=== PATIENT | female | born 1985 | race Caucasian/White ===

== ENCOUNTER 2017-08-26 16:44 | Emergency (ER) | payer OTHER ==
[~2017-08-26] VITALS: Ht 172.7 cm; Wt 90.7 kg
[2017-08-26] MEDS ORDERED: NEURONTIN 300300 M1 PO (16:56)
[2017-08-26 17:32] LABS: HEMATOCRIT 35.4 % (37.0-47.0); HEMOGLOBIN 12.1 gm/dL (12.0-15.0); MCHC 34.3 g/dL (28.0-37.0); MCV 87.5 fL (80.0-100.0); MPV 9.3 fl. (7.2-11.1); RBC 4.05 mil/uL (4.20-5.00); RDW-CV 12.8 % (10.5-14.5); WBC 13.5 thou/uL (4.0-11.0)
[2017-08-26 17:35] LABS: CALCIUM 8.2 mg/dL (8.5-10.1)
[2017-08-26 17:36] LABS: URINE BLOOD NEGATIVE (Negative); URINE CLARITY CLEAR; URINE COLOR DARK YELLOW; URINE GLUCOSE-RANDOM NEGATIVE (Negative); URINE KETONES NEGATIVE (Negative); URINE LEUKOCYTES NEGATIVE (Negative); URINE NITRITE NEGATIVE (Negative); URINE PROTEIN 1+ (Negative); URINE SPECIFIC GRAVITY 1.025 (1.005-1.030); URINE UROBILINOGEN 0.2 E.U./dl (0.2-1.0)
[2017-08-26 17:36] LABS: POTASSIUM 2.6 mmol/L (3.5-5.1)
[2017-08-26 17:37] LABS: ICTOTEST (BILI CONFIRMATORY) Negative (Negative); URINE BILIRUBIN 1+ (Negative)
[2017-08-26 17:39] LABS: ALBUMIN 3.4 g/dL (3.4-5.0); TOTAL BILIRUBIN 0.9 mg/dL (<0.1-1.0); TOTAL PROTEIN 6.9 g/dL (6.4-8.2)
[2017-08-26 17:48] LABS: AMP/METHAMP POSITIVE (Negative); BARBITURATES Negative (Negative); BENZODIAZEPINES Negative (Negative); COCAINE POSITIVE (Negative); METHADONE Negative (Negative); OPIATES POSITIVE (Negative); PCP Negative (Negative); THC Negative (Negative)
[2017-08-26 17:50] LABS: SALICYLATE < 2.8 mg/dL (2.8-20.0)
[2017-08-26 17:51] LABS: ACETAMINOPHEN < 2 ug/mL (10-30); ALCOHOL < 10 mg/dL (<10)
[2017-08-26] MEDS ORDERED: POTASSIUM20 PO (21:58)
[2017-08-26 22:18] VITALS: BP 106/62
== END 2017-08-26 22:20 | disposition home or self-care (01) ==
LOC: M.ERS 16:44
PROVIDERS: Personal Emergency Response Attendant
DX: F32.9 Major depressive disorder, single episode, unspecified (principal); R45.851 Suicidal ideations; E87.6 Hypokalemia; F15.10 Other stimulant abuse, uncomplicated; F14.10 Cocaine abuse, uncomplicated